=== PATIENT | female | born 1960 | race Hispanic/Latino ===

== ENCOUNTER 2023-02-09 11:45 | Outpatient (CLI) | payer BC | END 2023-02-09 11:46 | disposition home or self-care (01) | LOC: CSHMAMMO 11:45 | PROVIDERS: ATTEND Family Medicine | DX: Z12.31 Encounter for screening mammogram for malignant neoplasm of breast (principal) | CPT/HCPCS: 77063; 77067 ==

== ENCOUNTER 2023-03-04 06:41 | Day surgery (SDC) | payer BC ==
[2023-03-02 16:24] VITALS: BMI 30.9
[2023-03-04] MEDS ORDERED: PROPOFOL 40 ML ONE (08:38)
[2023-03-04] MEDS ORDERED: PROPOFOL 20 ML ONE ×2 (08:57→09:11)
== END 2023-03-04 10:10 | disposition home or self-care (01) ==
LOC: CSHSDC 06:41
PROVIDERS: ATTEND Internal Medicine Gastroenterology
PROC: 0DB68ZX Excision of Stomach, Via Natural or Artificial Opening Endoscopic, Diagnostic (ICD-10-PCS; principal; 2023-03-04)
PROC: 0DJD8ZZ Inspection of Lower Intestinal Tract, Via Natural or Artificial Opening Endoscopic (ICD-10-PCS; principal; 2023-03-04)
DX: Z12.11 Encounter for screening for malignant neoplasm of colon (principal); K64.8 Other hemorrhoids; K44.9 Diaphragmatic hernia without obstruction or gangrene; K29.80 Duodenitis without bleeding; K31.89 Other diseases of stomach and duodenum; K29.50 Unspecified chronic gastritis without bleeding; K30 Functional dyspepsia; I10 Essential (primary) hypertension; Z88.5 Allergy status to narcotic agent; Z90.49 Acquired absence of other specified parts of digestive tract
CPT/HCPCS: 88305; J2704